=== PATIENT | male | born 2005 | race Hispanic/Latino ===

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

== ENCOUNTER 2023-12-30 23:30 | Emergency (ER) | payer SELFPAY ==
[~2023-12-30] VITALS: Ht 162.6 cm; Wt 133.0 kg
[2023-12-30] MEDS ORDERED: GLUCAGON HCL (Rdna) 1 MG VIAL IV ONE (23:45)
[2023-12-30] MEDS ORDERED: ONDANSETRON HCl 4 MG/2 ML SDV IV ONE (23:45)
[2023-12-30] MEDS ORDERED: LORazepam 2 MG/ML IV ONE (23:50)
[2023-12-30] MEDS ORDERED: FAMOTIDINE 10MG/ML 2ML SDV IV ONE (23:50)
[2023-12-31 02:00] VITALS: BP 134/78
== END 2023-12-31 02:30 | disposition home or self-care (01) | DRG 156 ==
LOC: ED 23:30
DX: T17.228A Food in pharynx causing other injury, initial encounter (principal); W44.F3XA Food entering into or through a natural orifice, initial encounter
CPT/HCPCS: J1610; J2060